=== PATIENT | male | born 1950 | race Caucasian/White ===

== ENCOUNTER → 2016-10-16 | Day surgery (SDC) | payer MEDICARE, OTHER ==
[~2016-10-16] MED LIST: ALLO100T PO; ALLO300T2 PO; ASCO500C PO; ASPI-147 PO; BUPIVACAINE HCL PF 0.25% 30 ML VIAL ONE; CHOL1TAB42 PO; CULT10CA4 PO; GENT0.1C TOPICAL; INSU1INJ5 SQ; LACTATED RINGER'S 1000 ML INJ 1,000 ML ONE; MIDAZOLAM HCL 2 MG/2 ML VIAL ONE; MULT-65 PO; NOVOINJ3 SQ; PROPOFOL 500 MG/50 ML BTL IV ONE; SIME180C2 PO; SODI325T PO; ceFAZolin 2 GM PREMIX 50 ML ONE
--- NOTE | 2016-10-17 10:34 | MP ---
cc: [facility] DATE OF SURGERY: 10/16/2016 PREOPERATIVE DIAGNOSIS 1. Right hammertoe with chronic ulcer. 2. Right foot metatarsalgia with chronic ulcer beneath the fourth metatarsal. POSTOPERATIVE DIAGNOSIS 1. Right hammertoe with chronic ulcer. 2. Right foot metatarsalgia with chronic ulcer beneath the fourth metatarsal. PROCEDURE PERFORMED Right hallux amputation first metatarsal head resection and fifth metatarsal head resection with ellipse and closure of plantar wound. SPECIMEN Hallux bone and fourth metatarsal. ESTIMATED BLOOD LOSS Less than 30 mL. COMPLICATIONS None. ANESTHESIA TIVA, general, 20 cc of 0.25% Marcaine plain. TOURNIQUET TIME 55 minutes at a setting of 215 mmHg about the patient's right ankle. DISPOSITION PACU then DC home once stable per same-day surgery criteria. PROCEDURE IN DETAIL Under mild sedation the patient was brought into the operating room and placed on the operating table in the supine position. Following the induction of general anesthesia, local anesthesia was obtained about the forefoot and plantar utilizing standard block fashion. The right foot was scrubbed, prepped and draped in the usual aseptic fashion. The foot was elevated, exsanguinated and the previously placed ankle tourniquet was inflated to 215 mmHg. An anterior fishmouth type incision was made at the level of the hallux. Sharp and blunt dissection was carried down ellipsing out scar tissue and ulcer down to the level of the first MPJ. There was noted to be severe joint contracture. The hallux was disarticulated at the level of the first MPJ and passed off the field. There was noted to be significant bulking of the plantar aspect of the foot scar tissue, sesamoids and a prominent first metatarsal head. To allow for skin closure we opted to move for with removal of the sesamoids and partial removal of the first metatarsal head. Once this was performed there was noted to be ease of closure of the dorsal and plantar flap. The wound was flushed with copious amounts of normal saline. Bovie and ligation took place at the level of the neurovascular structures of the two flaps. Deep closure took place utilizing Vicryl. Skin was closed utilizing nylon. Next, an elliptical incision was made at the plantar aspect of the fourth metatarsal full-thickness down to the fourth metatarsal head. This was performed in such a way to remove chronic ulceration to viable bleeding tissue and better skin edges. Once the metatarsal was removed utilizing power instrumentation the wound was flushed with copious amounts of normal saline. Deep fascia and dermis was closed utilizing Vicryl. Skin was closed utilizing nylon. Upon relieving the tourniquet there was a prompt hyperemic response to all digits without any delayed capillary fill time. A bulky bandage was placed. The patient was positioned within a Lai compressive dressing and a posterior splint. He was transferred from OR to PACU with all vital signs stable. He will elevate. No ice. He is non-weightbearing. He will follow-up within one week. ERROL Simmons/GALO /3:03 PM /10:27 AM
== END | disposition home or self-care (01) ==
LOC: ESDC 12:44
PROVIDERS: ATTEND Podiatrist Foot & Ankle Surgery
DX: M20.41 Other hammer toe(s) (acquired), right foot (principal); L97.519 Non-pressure chronic ulcer of other part of right foot with unspecified severity; E11.9 Type 2 diabetes mellitus without complications; Z79.4 Long term (current) use of insulin
CPT/HCPCS: 01480; 28112; 28820; 82948; 88305; 88311; J0690; J2250; J7120